=== PATIENT | male | born 1960 | race Caucasian/White ===

== ENCOUNTER 2018-01-18 07:30 | Emergency (ER) | payer BC ==
[~2018-01-18] VITALS: Ht 170.2 cm; Wt 123.0 kg
[~2018-01-18 07:30] MED LIST: AVODART0.5 MG PO; ENABLEX7.5 MG PO; FINASTERIDE5 MG PO; FLOMAX0.4 MG PO; FLUOXETINE HCL60 MG PO; LORTAB 5-325 M1 EACH PO; MAXZIDE 37.5 M1 EACH PO; MOBIC7.5 MG PO; MOTRIN600 MG PO; NORCO 5/3251 TABLET PO
[2018-01-18 09:46] VITALS: BP 130/72
== END 2018-01-18 09:47 | disposition home or self-care (01) ==
LOC: EME 07:30
DX: M54.32 Sciatica, left side (principal); I10 Essential (primary) hypertension; K21.9 Gastro-esophageal reflux disease without esophagitis; N40.0 Benign prostatic hyperplasia without lower urinary tract symptoms; F17.200 Nicotine dependence, unspecified, uncomplicated; Z87.442 Personal history of urinary calculi; Z87.440 Personal history of urinary (tract) infections; Z91.040 Latex allergy status
CPT/HCPCS: 99281; 99284; J1885; J7512